=== PATIENT | female | born 1995 | race Caucasian/White ===

== ENCOUNTER 2016-05-28 12:18 | Emergency (ER) | payer OTHER ==
--- NOTE | 2016-05-28 12:27 | ER Document Report ---
ED Medical Screen (RME) - General Stated Complaint: TROUBLE BREATHING/CHEST PAIN Mode of Arrival: Ambulatory Information source: Patient Notes: Patient complains of shortness of breath and difficulty breathing. Patient complains of midsternal chest pain. Patient reports symptoms started last night. Patient denies any cough. hx: Prediabetic I have greeted and performed a rapid initial assessment of this patient. A comprehensive ED assessment and evaluation of the patient, analysis of test results and completion of the medical decision making process will be conducted by additional ED providers. - Related Data Allergies/Adverse Reactions: No Known Allergies Allergy (Verified 05/28/16 12:25) Physical Exam - Vital signs Vitals: Temp Pulse Resp BP Pulse Ox 98.1 F 110 H 18 139/72 H 96 05/28/16 12:22 05/28/16 12:05/28/16 12:05/28/16 12:05/28/16 12:22 - Cardiovascular Rhythm: Tachycardia Heart sounds: S1 appreciated, S2 appreciated Murmur: No Course - Vital Signs Vital signs: Temp Pulse Resp BP Pulse Ox 98.1 F 110 H 18 139/72 H 96 05/28/16 12:22 05/28/16 12:22 05/28/16 12:05/28/16 12:05/28/16 12:22
--- NOTE | 2016-05-28 13:25 | ER Document Report ---
HPI - HPI Pain Level: 3 Context: Patient is a 21-year-old female presents emergency Department complaining of shortness of breath, painful breathing and chest pain since yesterday afternoon. Patient states that it's been substernal pressure that comes and goes but is worse with deep breathing. Patient denies any tobacco use, control use, recent travel or recent surgeries. Otherwise she denies any fevers , body aches sore throat, nasal congestion or sinus congestion. denies that position make any difference, states it does not get worse while lying flat She did receive a flu vaccine this year Does not have a primary care provider Past medical history significant for prediabetes Past surgical history significant for cholecystectomy Social history denies any drug use, alcohol or tobacco use. No allergies. - DERM Skin Color: Normal Past Medical History - General Information source: Patient - Social History Smoking Status: Unknown if Ever Smoked Chew tobacco use (# tins/day): No Frequency of alcohol use: None Drug Abuse: None Family History: Reviewed & Not Pertinent Patient has suicidal ideation: No Patient has homicidal ideation: No Renal/ Medical History: Denies: Hx Peritoneal Dialysis Vertical Provider Document - CONSTITUTIONAL Agree With Documented VS: Yes Exam Limitations: No Limitations General Appearance: WD/WN, No Apparent Distress, Obese - INFECTION CONTROL TRAVEL OUTSIDE OF THE [place] IN LAST 30 DAYS: No - HEENT HEENT: Atraumatic, Normal ENT Exam, Normocephalic, PERRLA - NECK Neck: Normal Inspection. negative: Lymphadenopathy-Left, Lymphadenopathy-Right - RESPIRATORY Respiratory: Breath Sounds Normal, No Respiratory Distress, Chest Non-Tender - Chest pain is not reproducible on exam. negative: Rales, Rhonchi, Wheezing O2 Sat by Pulse Oximetry: 96 Notes: while lying flat, denies onset of symptoms, denies shortness of breath, chest pain - CARDIOVASCULAR Cardiovascular: Regular Rhythm, No Murmur, Tachycardia Pulses: Normal: Radial - GI/ABDOMEN Gastrointestinal: Abdomen Soft, Abdomen Non-Tender, No Organomegaly, Normal Bowel Sounds - MUSCULOSKELETAL/EXTREMETIES Musculoskeletal/Extremeties: MAEW, FROM, Non-Tender, No Edema - NEURO Level of Consciousness: Awake, Alert, Appropriate Motor/Sensory: No Motor Deficit, No Sensory Deficit - DERM Integumentary: Warm, Dry, No Rash Course - Re-evaluation Re-evalutation: 05/28/16 14:47 Patient is a 21-year-old female right department with sudden onset chest pain since yesterday. Patient states that she had been taking Tums with some relief of her symptoms. Patient is currently asymptomatic, without any chest pain and states she hadn't really had any since she's been in the department. Patient physical exam was otherwise benign. Chest x-ray, EKG and lab work were all benign. Given patient's age and lack of past medical history no concern for any acute cardiac causes at this time. Discharge patient home with instruction to follow with her PCP. - Vital Signs Vital signs: Temp Pulse Resp BP Pulse Ox 98.1 F 110 H 18 139/72 H 96 05/28/16 12:22 05/28/16 12:22 05/28/16 12:22 05/28/16 12:05/28/16 12:22 - Diagnostic Test Radiology reviewed: Image reviewed, Reports reviewed - EKG Interpretation by Me EKG shows normal: Sinus rhythm Rate: Tachycardia Rhythm: NSR When compared to previous EKG there are: Previous EKG unavailable Discharge - Discharge Clinical Impression: Chest pain Qualifiers: Chest pain type: unspecified Qualified Code(s): R07.9 - Chest pain, unspecified Condition: Good Disposition: HOME, SELF-CARE Instructions: Use of Lzlv-Eum-Pcmgcby Ibuprofen ([facility]) Additional Instructions: CHEST PAIN OF UNCLEAR CAUSE: The exact cause of your chest pain isn't clear. Fortunately, there is no evidence of a dangerous medical condition. Further testing may be required to find the source of the pain. Most often, we find that this pain is coming from the chest wall -- the muscles or rib joints in the chest. But chest pain can come from the lung and lung lining, the esophagus, the heart valves or heart lining, and even the stomach or gallbladder. Rest. Eat lightly until the pain is gone. We may prescribe medicine for pain and inflammation. You should call the physician immediately if the pain radiates to the shoulder, jaw or arms; if you start to run a fever or develop a cough; or if you develop shortness of breath, or other new or alarming symptoms. NORMAL EXAM AND WORKUP: At this time, your examination and workup show no significant abnormality. No significant abnormal physical findings were noted. All laboratory, EKG, and imaging (x-ray, CT scans, ultrasound) studies that were ordered show no significant abnormality. Although your examination and all studies that were ordered showed no significant abnormal finding, there are no examinations and no studies that are 100% accurate. There is always the possibility that some abnormality could exist and not be detected with physical examination or within the limits and capabilities of laboratory and other studies. You should return or follow up as you were instructed on your visit today for further evaluation if your symptoms do not resolve. ACID REFLUX DISEASE (GERD): Gastro-Esophageal Reflux Disease (GERD) is caused by stomach acid refluxing back up into the esophagus. The valve at the end of the esophagus may be weak. This is common in persons with a hiatal hernia. GERD symptoms can include indigestion, chest pain, heartburn, or food "sticking." Certain foods, alcohol, and aspirin can make GERD worse. Treatment depends on the severity. Usually, antacids or acid-suppressing medicines are used. When the esophagus is acutely inflamed, the physician will often prescribe membrane-protective drugs such as Carafate. Some patients benefit from medication such as Reglan that tightens the valve at the top of the stomach. Avoid those foods that bring on your symptoms. For many people, these foods are coffee, chocolate, onions, garlic, and carbonated drinks. Don't use alcohol, aspirin, caffeine, or tobacco. Don't eat late at night -- within 4 hours of bedtime. Don't over-eat. If necessary, elevate the head of your bed about 4 inches so that stomach acid will not roll up into your esophagus. Call the doctor if you develop severe chest pain, inability to swallow fluids, fever, or worsening symptoms. PRILOSEC (ACID PUMP INHIBITOR): Prilosec (omeprazole) is an acid-pump inhibitor. It blocks the secretion of hydrogen ions in the acid-producing cells of the stomach. Prilosec keeps your stomach from making acid. Take all medication as prescribed, even after the pain is gone. Regular antacids may be added as needed if you have symptoms while taking this medicine. There are usually no side effects from this medication. Contact your doctor if there is fever, rash, yellow skin color, increasing abdominal pain, weakness, or unusual bruising. Return at once if you develop lightheadedness, black or bloody stool, or bloody vomitus. FOLLOW-UP CARE: If you have been referred to a physician for follow-up care, call the physician s office for an appointment as you were instructed or within the next two days. If you experience worsening or a significant change in your symptoms, notify the physician immediately or return to the Emergency Department at any time for re-evaluation. Prescriptions: Omeprazole 20 mg PO DAILY #30 tablet.dr Forms: Elevated Blood Pressure Referrals: SHAQUILLE BANERJEE MD [ACTIVE STAFF] - Follow up as needed
[2016-05-28 14:59] VITALS: BP 120/69
--- NOTE | 2016-05-28 21:55 | EKG REPORT ---
SEVERITY:- BORDERLINE ECG - SINUS TACHYCARDIA INFERIOR Q WAVES, PROBABLY NORMAL VARIATION : Confirmed by: Danielle Garrison 28-May-2016 21:54:10
== END 2016-05-28 14:59 | disposition home or self-care (01) ==
LOC: ER 12:18
DX: R07.89 Other chest pain (principal); R07.1 Chest pain on breathing; R00.0 Tachycardia, unspecified
CPT/HCPCS: 36415; 71020; 85379; 93005; 93010; 99285